=== PATIENT | male | born 1965 | race African-American/Black ===

== ENCOUNTER 2018-07-16 22:08 | Emergency (ER) | payer OTHER ==
[~2018-07-16] VITALS: Ht 170.2 cm; Wt 72.6 kg
--- OUTSIDE RECORDS SUMMARY | 2018-07-16 22:16 | XMS REPORT ---
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 Name Role Phone SIDNEY NEWMAN Unavailable PROBLEMS Unknown Problems ALLERGIES No Known Allergies ENCOUNTERS Encounter Location Date Diagnosis [address] [address] Apr, [address] [address] Apr, Bronchitis J40 ; Fatigue R53.83 ; Cough R05 and History of methamphetamine abuse Z87.898 [facility] [address] [place] [address] Apr, Acute nasopharyngitis J00 and Fever, unspecified R50.[address] [address] Mar, Nosebleed R04.0 IMMUNIZATIONS No Known Immunizations SOCIAL HISTORY Never Assessed REASON FOR VISIT Cough, fever , body aches //elamfu/ma PLAN OF CARE Activity Details Follow Up if not improving with PCP or reg follow up Reason: VITAL SIGNS Height 67 in 2018-04-13 Weight 150 lbs 2018-04-13 Temperature 101.0 degrees Fahrenheit 2018-04-13 Heart Rate 72 bpm 2018-04-13 Respiratory Rate 18 2018-04-13 Oximetry 98 % 2018-04-13 BMI 23.49 kg/m2 2018-04-13 Blood pressure systolic 128 mmHg 2018-04-13 Blood pressure diastolic 74 mmHg 2018-04-13 MEDICATIONS Medication Instructions Dosage Frequency Start Date End Date Duration Status ProAir HFA 108 (90 Base) MCG/ACT Inhalation every 4-6 hrs PRN 2 puffs as needed Apr, 5 days Active RESULTS Name Result Date Reference Range INFLUENZA A & B (IN HOUSE) 2018-04-13 INFLUENZA A neg INFLUENZA B neg Control pass Lot # [id number] Exp date 12/09/2018 PROCEDURES Procedure Date Ordered Result Body Site INFLUENZA ASSAY W/OPTIC April 13, 2018 INSTRUCTIONS MEDICATIONS ADMINISTERED No Known Medications MEDICAL (GENERAL) HISTORY Type Description Date Surgical History cyst removal mid back Hospitalization History see surgries
--- OUTSIDE RECORDS SUMMARY | 2018-07-16 22:16 | XMS REPORT | Continuity of Care Document ---
Author Organization Unknown Address Unknown Allergies There is no data. Medications There is no data. Problems There is no data. Procedures There is no data. Results Test Result Range CULTURE, URINE - 05/24/18 15:50 CULTURE, URINE, ROUTINE NRG CBC - 05/24/18 16:16 WHITE BLOOD CELL COUNT 4.5 Thousand/uL 3.8-10.8 RED BLOOD CELL COUNT 5.59 Million/uL 4.20-5.80 HEMOGLOBIN 12.0 g/dL 13.2-17.1 HEMATOCRIT 39.2 % 38.5-50.0 MCV 70.1 fL 80.0-100.0 MCH 21.5 pg 27.0-33.0 MCHC 30.6 g/dL 32.0-36.0 RDW 16.5 % 11.0-15.0 PLATELET COUNT 246 Thousand/uL 140-400 MPV 9.4 fL 7.5-12.5 ABSOLUTE NEUTROPHILS 2286 cells/uL 3625-5124 ABSOLUTE LYMPHOCYTES 1670 cells/uL 850-3900 ABSOLUTE MONOCYTES 392 cells/uL 200-950 ABSOLUTE EOSINOPHILS 113 cells/uL 15-500 ABSOLUTE BASOPHILS 41 cells/uL 0-200 NEUTROPHILS 50.8 % NRG LYMPHOCYTES 37.1 % NRG MONOCYTES 8.7 % NRG EOSINOPHILS 2.5 % NRG BASOPHILS 0.9 % NRG Encounters ACCT No. Visit Date/Time Discharge Status Pt. Type Provider Facility Loc./Unit Complaint [id number] 07/04/2018 11:10:00 07/04/2018 23:59:59 [facility] [id number] 05/24/2018 15:20:00 Document Registration
--- NOTE | 2018-07-16 22:23 | ED Integumentary General ---
General Stated Complaint: RASH ALL OVER BODY Source: patient, family, RN notes reviewed Exam Limitations: no limitations History of Present Illness Date Seen by Provider: Jul 16, 2018 Time Seen by Provider: 22:22 Initial Comments Patient presents c/ c/o worsening rash and now swelling around his eyes and of his lips. Started a week ago and went to an Urgent Care and received a shot for it, but it didn't help. 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 Denies any dyspnea. Rash is uncomfortable. Timing/Duration: week (one) Severity: moderate Location: face (and back of neck), extremities (forearms) Possible Cause: no cause identified Modifying Factors: improves with other (none) Associated Symptoms: denies symptoms (x/ as noted. ), change in skin texture, hives, rash Allergies and Home Medications Allergies Coded Allergies: No Known Drug Allergies (Unverified , 07/16/18) Home Medications Famotidine 20 Mg Tablet, 20 MG PO BID Prescribed by: YASMINE GATICA on 07/16/18 2343 Prednisone 20 Mg Tab, 30 MG PO BID Prescribed by: YASMINE GATICA on 07/16/18 2343 Patient Home Medication List Home Medication List Reviewed: Yes Review of Systems Review of Systems Constitutional: see HPI EENTM: see HPI, other (swelling around eyes and of his lips) Skin: see HPI, pruritus, rash All Other Systems Reviewed Negative Unless Noted: Yes (Negative excepted noted.) Past Acbpdoq-Jrgzxm-Ywetsh Hx Patient Social History Recent Foreign Travel: No Contact w/Someone Who Travel: No Physical Exam Vital Signs Vital Signs - First Documented 07/16/18 22:23 Temp 98.3 Pulse 80 Resp 18 B/P (MAP) 156/92 (113) Pulse Ox 99 O2 Delivery Room Air Capillary Refill : General Appearance: WD/WN, no apparent distress HEENT: pharynx normal, other (apparent angioedema of lips and around his eyes.) Neck: normal inspection Cardiovascular: regular rate, rhythm Respiratory: no respiratory distress; No stridor Neurologic/Psychiatric: no motor/sensory deficits, alert, oriented x 3 Skin: warm/dry, rash (primarily of his exposed skin, i.e., neck, face, forearms . Urticarial appearing. Angioedema as described above) Skin Problem Location: face, neck, upper extremities (forearms) Skin Problem Character: erythema, urticarial Lymphatic: no adenopathy Progress/Results/Core Measures Results/Orders Lab Results Laboratory Tests Test 07/16/18 22:40 Range/Units White Blood Count 3.9 L 4.3-11.0 10^3/uL Red Blood Count 5.18 4.35-5.85 10^6/uL Hemoglobin 11.0 L 13.3-17.7 G/DL Hematocrit 34 L 40-54 % Mean Corpuscular Volume 66 L 80-99 FL Mean Corpuscular Hemoglobin 21 L 25-34 PG Mean Corpuscular Hemoglobin Concent 32 32-36 G/DL Red Cell Distribution Width 15.6 H 10.0-14.5 % Platelet Count 228 130-400 10^3/uL Mean Platelet Volume 9.4 7.4-10.4 FL Neutrophils (%) (Auto) 47 42-75 % Lymphocytes (%) (Auto) 37 12-44 % Monocytes (%) (Auto) 9 0-12 % Eosinophils (%) (Auto) 7 0-10 % Basophils (%) (Auto) 0 0-10 % Neutrophils # (Auto) 1.8 1.8-7.8 X 10^3 Lymphocytes # (Auto) 1.5 1.0-4.0 X 10^3 Monocytes # (Auto) 0.3 0.0-1.0 X 10^3 Eosinophils # (Auto) 0.3 0.0-0.3 10^3/uL Basophils # (Auto) 0.0 0.0-0.1 10^3/uL Sodium Level 141 135-145 MMOL/L Potassium Level 4.0 3.6-5.0 MMOL/L Chloride Level 103 98-107 MMOL/L Carbon Dioxide Level 22 21-32 MMOL/L Anion Gap 16 H 5-14 MMOL/L Blood Urea Nitrogen 14 7-18 MG/DL Creatinine 0.92 0.60-1.30 MG/DL Estimat Glomerular Filtration Rate > 60 BUN/Creatinine Ratio 15 Glucose Level 116 H 70-105 MG/DL Calcium Level 8.9 8.5-10.1 MG/DL Corrected Calcium 9.0 8.5-10.1 MG/DL Magnesium Level 1.8 1.8-2.4 MG/DL Total Bilirubin 0.4 0.1-1.0 MG/DL Aspartate Amino Transf (AST/SGOT) 72 H 5-34 U/L Alanine Aminotransferase (ALT/SGPT) 81 H 0-55 U/L Alkaline Phosphatase 85 40-136 U/L Total Protein 7.3 6.4-8.2 GM/DL Albumin 3.9 3.2-4.5 GM/DL My Orders Orders - YASMINE GATICA DO Ed Iv/Invasive Line Start (07/16/18 22:35) Dexamethasone Injection (Decadron Inject (07/16/18 22:45) Diphenhydramine Injection (Benadryl Inje (07/16/18 22:45) Famotidine Injection (Pepcid Injection) (07/16/18 22:45) Cbc With Automated Diff (07/16/18 22:53) Comprehensive Metabolic Panel (07/16/18 22:53) Magnesium (07/16/18 22:53) Prednisone Tablet (Deltasone Tablet) (07/16/18 23:45) Medications Given in ED Vital Signs/I&O 07/16/18 07/17/18 22:23 00:05 Temp 98.3 98.1 Pulse 80 79 Resp 18 16 B/P (MAP) 156/92 (113) 156/89 (111) Pulse Ox 99 99 O2 Delivery Room Air Room Air Progress Progress Note : Progress Note There was some mild improvement @ the time of discharge. Departure Impression Primary Impression: Urticaria Additional Impressions: Angioedema ? Contact dermatitis Disposition: HOME, SELF-CARE Condition: Stable Departure-Patient Inst. Referrals: ZIGGY SHELTON APRN (PCP) Primary Care Physician Patient Instructions: Angioedema (DC), Hives (DC) Add. Discharge Instructions: CONTINUE 50 mg OF BENADRYL EVERY 6 HOURS UNTIL BETTER. Scripts Famotidine (Pepcid) 20 Mg Tablet 20 MG PO BID for 10 Days, #20 TAB 0 Refills Prov: YASMINE GATICA DO 07/16/18 Prednisone (Prednisone) 20 Mg Tab 30 MG PO BID for 10 Days, #30 TAB 0 Refills Prov: YASMINE GATICA DO 07/16/18 YASMINE GATICA DO Jul 16, 2018 22:23
[2018-07-16] MEDS ORDERED: FAMOTIDINE 20MG/2ML IV (PEPCID) IVP ONE (22:45)
[2018-07-16] MEDS ORDERED: DEXAMETHASONE 4 MG/ML SDV (DECADRON) IV ONE (22:45)
[2018-07-16] MEDS ORDERED: diphenhydrAMINE 50 MG/ML INJ (BENADRYL) IVP ONE (22:45)
[2018-07-16 23:02] LABS: HEMATOCRIT 34 % (40-54); MEAN CORPUSCULAR HEMOGLOBIN 21 PG (25-34); MEAN CORPUSCULAR HGB CONC 32 G/DL (32-36); MEAN CORPUSCULAR VOLUME 66 FL (80-99); RED CELL DISTRIBUTION WIDTH 15.6 % (10.0-14.5); WHITE BLOOD COUNT 3.9 10^3/uL (4.3-11.0)
[2018-07-16 23:03] LABS: BASOPHILS % (AUTO) 0 % (0-10); EOSINOPHILS # (AUTO) 0.3 10^3/uL (0.0-0.3); EOSINOPHILS % (AUTO) 7 % (0-10); LYMPHOCYTES # (AUTO) 1.5 X 10^3 (1.0-4.0); LYMPHOCYTES % (AUTO) 37 % (12-44); MEAN PLATELET VOLUME 9.4 FL (7.4-10.4); MONOCYTES # (AUTO) 0.3 X 10^3 (0.0-1.0); MONOCYTES % (AUTO) 9 % (0-12); NEUTROPHILS # (AUTO) 1.8 X 10^3 (1.8-7.8); NEUTROPHILS % (AUTO) 47 % (42-75); PLATELET COUNT 228 10^3/uL (130-400)
[2018-07-16 23:12] LABS: ALANINE AMINOTRANSFERASE 81 U/L (0-55); ALKALINE PHOSPHATASE 85 U/L (40-136); BILIRUBIN,TOTAL 0.4 MG/DL (0.1-1.0); BUN/CREATININE RATIO 15; CALCIUM 8.9 MG/DL (8.5-10.1); CARBON DIOXIDE 22 MMOL/L (21-32); CHLORIDE 103 MMOL/L (98-107); CREATININE SERUM 0.92 MG/DL (0.60-1.30); GFR ESTIMATED > 60; GLUCOSE 116 MG/DL (70-105); MAGNESIUM 1.8 MG/DL (1.8-2.4); SODIUM 141 MMOL/L (135-145); TOTAL PROTEIN 7.3 GM/DL (6.4-8.2)
[2018-07-16 23:13] LABS: ALBUMIN 3.9 GM/DL (3.2-4.5)
[2018-07-16] MEDS ORDERED: FAMO-119 PO (23:43)
[2018-07-16] MEDS ORDERED: PRD20T PO (23:43)
[2018-07-16] MEDS ORDERED: predniSONE 20 MG TAB PO ONE (23:45)
[2018-07-17 00:05] VITALS: BP 156/89
== END 2018-07-17 00:05 | disposition home or self-care (01) ==
LOC: EDUNIT# 22:08 → ER FS 22:12
DX: L50.9 Urticaria, unspecified (principal); T78.3XXA Angioneurotic edema, initial encounter; Z79.52 Long term (current) use of systemic steroids
CPT/HCPCS: 36415; 80053; 83735; 85025; 96374; 96375; 99282